=== PATIENT | male | born 1975 | race Caucasian/White ===

== ENCOUNTER → 2023-10-14 12:51 | Outpatient (REF) | payer OTHER, SELFPAY | LOC: MRI 12:51 | PROVIDERS: ATTENDING PHYSICIAN Thoracic Surgery (Cardiothoracic Vascular Surgery); FAMILY PHYSICIAN Family Medicine; REFERRING PHYSICIAN Thoracic Surgery (Cardiothoracic Vascular Surgery) | DX: I71.21 Aneurysm of the ascending aorta, without rupture (principal) | CPT/HCPCS: 71552; A9585 ==

== ENCOUNTER → 2023-11-11 10:35 | Outpatient (REF) | payer OTHER, SELFPAY | LOC: RAD 10:35 | PROVIDERS: ATTENDING PHYSICIAN Nurse Practitioner Adult Health; FAMILY PHYSICIAN Family Medicine | DX: R35.0 Frequency of micturition (principal) | CPT/HCPCS: 76770 ==

== ENCOUNTER → 2023-12-10 08:00 | Outpatient (REF) | payer OTHER, SELFPAY | LOC: RCS 08:00 | PROVIDERS: ATTENDING PHYSICIAN Thoracic Surgery (Cardiothoracic Vascular Surgery); FAMILY PHYSICIAN Family Medicine | DX: I71.21 Aneurysm of the ascending aorta, without rupture (principal) | CPT/HCPCS: 93306 ==